=== PATIENT | female | born 1985 | race African-American/Black ===

== ENCOUNTER 2019-07-23 14:29 | Emergency (ER) | payer MEDICARE, MEDICAID ==
[~2019-07-23] VITALS: Ht 165.1 cm; Wt 127.0 kg
[~2019-07-23 14:29] MED LIST: IBUPROFEN600 MG ORAL; KEFLEX500 MG ORAL
[2019-07-23] MEDS ORDERED: PREDNISOLO15 MG/5 M1 ORAL (14:40)
[2019-07-23 14:42] VITALS: BP 129/81
[2019-07-23] MEDS ORDERED: HYDROcodone/Acetamin 5/325 tab ORAL ONE (15:15)
--- NOTE | 2019-07-23 15:24 | Emergency Room Report ---
History of Present Illness General Chief Complaint: Upper Extremity Injury Source: Patient Present Illness HPI 34-year-old female presents to the emergency department complaining of left hand , left elbow, and left knee pain that is 10 out of 10 in severity status post mechanical slip and fall at 3 AM this morning. Patient denies hitting her head or having loss of consciousness. She denies midline neck or back pain. She reports she has been ambulatory since no saddle anesthesia, urinary incontinence or retention. Denies loss gross motor movements of the affected extremities. Denies paresthesias. Denies Bruises. Denies open wounds. Allergies: Uncoded Allergies: AMOXYCILIN (Allergy, Unknown, 07/23/19) Patient History Past Medical History: see triage record Past Surgical History: none Pertinent Family History: none Last Menstrual Period: Jul 16, 2019 Now: No Reviewed Nursing Documentation: PMH: Agreed; PSxH: Agreed Nursing Documentation-PMH Past Medical History: No History, Except For Hx Asthma: Yes Review of Systems All Other Systems: negative except mentioned in HPI Physical Exam Vital Signs Date Time Temp Pulse Resp B/P (MAP) Pulse Ox O2 Delivery O2 Flow Rate FiO2 07/23/19 14:36 97.9 71 17 129/81 (97) 99 Room Air Medical Decision Making PA Attestation Dr. Eduardo is my supervising Physician whom patient management has been discussed with. Jayce Diagnostic Impression: Primary Impression: Left elbow contusion Qualified Codes: S50.02XA - Contusion of left elbow, initial encounter Additional Impressions: Left wrist sprain Qualified Codes: S63.502A - Unspecified sprain of left wrist, initial encounter Scaphoid fracture of wrist Qualified Codes: S62.002A - Unspecified fracture of navicular [scaphoid] bone of left wrist, initial encounter for closed fracture Radial head fracture, closed Qualified Codes: S52.125A - Nondisplaced fracture of head of left radius, initial encounter for closed fracture ER Course Pt. presents to the ED c/o [ ] Ddx considered but are not limited to Fracture, dislocation, contusion, Sprain/ Strain/Spasm, Epidural abscess, Neoplastic mets. Vital signs: are WNL, pt. is afebrile H&PE are most consistent with musculoskeletal injury will perform imaging to r/ o fractures/dislocations. ORDERS: - X-ray Left Elbow, Wrist and hand - negative for fx, Dislocation, or significant soft tissue injury, per preliminary read in ED, and signed by MORE Soares, my supervising physician has reviewed, and agrees with my interpretation. ED INTERVENTIONS: - Le Mars Po Left Thumb Spika Splint applied by dental equipment technician. Pt. remains neurovascularly intact. DISCHARGE: At this time pt. is stable for d/c to home. Will provide printed patient care instructions, and any necessary prescriptions. Care plan and follow up instructions have been discussed with the patient prior to discharge. Last Vital Signs Date Time Temp Pulse Resp B/P (MAP) Pulse Ox O2 Delivery O2 Flow Rate FiO2 07/23/19 14:42 97.9 87 17 129/81 99 Room Air Disposition: HOME, SELF-CARE Condition: Stable Scripts Ibuprofen* (MOTRIN*) 600 Mg Tablet 600 MG ORAL THREE TIMES A DAY, #30 TAB 0 Refills Prov: Elisha Soares 07/23/19 Acetaminophen With Codeine (T#3) (TYLENOL #3 TAB*) Y Tab 1 TAB ORAL Q6H PRN for For Pain, #20 TAB Prov: Elisha Soares 07/23/19 Referrals: Orthopedic Urgent Care Departure Forms: Return to Work Return to Work Date: Jul 27, 2019 Work Restrictions: No Heavy Lifting Other Restrictions: allow splint use. limited use of the left arm/hand. Return to Full Activity: Aug 10, 2019 Patient Instructions: Radial Head Fracture, [id number], Scaphoid Fracture, Wrist Additional Instructions: Take medications as directed. Follow up with an [facility] MACHINE OPERATOR in 3-5 days, even if your symptoms have resolved. If symptoms persist MRI may be required at the discretion of your PCP or Ortho Specialist. --Please review list of primary care clinics, if you do not already have a primary care provider who can give you an Orthopedic Referral. Return sooner to ED if new symptoms occur, or current symptoms become worse. Do not drink alcohol, drive, or operate heavy machinery while taking Le Mars as this may cause drowsiness. - Please note that this Emergency Department Report was dictated using [employer] technology software, occasionally this can lead to erroneous entry secondary to interpretation by the dictation equipment. Elisha Soares Jul 23, 2019 15:24
--- NOTE | 2019-07-23 16:10 | Diagnostic Imaging Report ---
ADDENDUM - Added by Ray Jo M.D. on 07/23/2019 4:40 PM (-08:00) Correction: This is a left wrist examination, not right wrist as dictated. EXAM: XR Right Wrist Complete, 3 or More Views CLINICAL HISTORY: PAIN TECHNIQUE: Frontal, lateral and oblique views of the right wrist. COMPARISON: No relevant prior studies available. FINDINGS: Bones/joints: Unremarkable. No acute fracture. No dislocation. Soft tissues: Unremarkable. No radiopaque foreign body. IMPRESSION: Unremarkable right wrist x-rays. <MYCVCSECTION> Communications: 07/23/19 16:47 Verify Receipt Verified receipt with Jayce Barnett MD on 07/23 16:47 (-08:00)
--- NOTE | 2019-07-23 16:11 | Diagnostic Imaging Report ---
ADDENDUM - Added by Ray Jo M.D. on 07/23/2019 4:40 PM (-08:00) Impression: This is a left elbow exam, not right elbow as dictated. EXAM: XR Right Elbow Complete, 3 or More Views CLINICAL HISTORY: PAIN TECHNIQUE: Frontal, lateral and oblique views of the right elbow. COMPARISON: No relevant prior studies available. FINDINGS: Bones/joints: No displaced fracture. No dislocation. Soft tissues: Joint effusion. IMPRESSION: No fracture is identified. Joint effusion suggests an occult fracture. Consider follow-up radiographs in 10-14 days to assess for healing response. <MYCVCSECTION> Communications: 07/23/19 16:47 Verify Receipt Verified receipt with Jayce Pineda MD on 07/23 16:47 (-08:00)
--- NOTE | 2019-07-23 16:40 | Diagnostic Imaging Report ---
EXAM: XR Left Hand Complete, 3 or More Views CLINICAL HISTORY: PAIN TECHNIQUE: Frontal, lateral and oblique views of the left hand. COMPARISON: No relevant prior studies available. FINDINGS: Bones/joints: Unremarkable. No acute fracture. No dislocation. Soft tissues: Unremarkable. No radiopaque foreign body. IMPRESSION: Unremarkable left hand x-rays.
[2019-07-23] MEDS ORDERED: IBUPROFEN600 MG ORAL (17:19)
[2019-07-23] MEDS ORDERED: ACETAMINOPHEN-1 EAC1 ORAL (17:19)
[2019-07-23 17:38] VITALS: BP 137/84
== END 2019-07-23 17:42 | disposition home or self-care (01) ==
LOC: EMR 15:20
DX: S50.02XA Contusion of left elbow, initial encounter (principal); S63.502A Unspecified sprain of left wrist, initial encounter; S62.002A Unspecified fracture of navicular [scaphoid] bone of left wrist, initial encounter for closed fracture; S52.125A Nondisplaced fracture of head of left radius, initial encounter for closed fracture; X58.XXXA Exposure to other specified factors, initial encounter; Y92.9 Unspecified place or not applicable
CPT/HCPCS: 29130; 99284